=== PATIENT | male | born 1940 | race Two or more races ===

== ENCOUNTER 2023-01-29 05:08 | Inpatient (IN) | payer MEDICARE, OTHER ==
[~2023-01-29] VITALS: Ht 170.2 cm; Wt 72.6 kg
[2023-01-29] MEDS ORDERED: ACETAMINOPHEN 325 MG TABLET PO ONE (05:30)
[2023-01-29] MEDS ORDERED: CEFTRIAXONE 1GM BAG (ER ONLY) 50 ML IV ONE ×2 (05:30→05:46)
[2023-01-29] MEDS ORDERED: IV NS 0.9% 1,000 ML BAG IV ONE (05:30)
[2023-01-29] MEDS ORDERED: AZITHROMYCIN 500 MG in IV D5W 250 ML IV ONE (05:30)
[2023-01-29] MEDS ORDERED: ACETAMINOPHEN 325 MG TABLET ONE (05:46)
[2023-01-29 05:59] LABS: BASOPHILS # (AUTO) 0.1 K/uL (0.0-0.2); BASOPHILS % (AUTO) 0.4 % (0.0-2.0); HEMATOCRIT 40 % (39-51); HEMOGLOBIN 13.5 g/dL (13.5-17.5); LYMPHOCYTES # (AUTO) 1.4 K/uL (0.8-4.8); LYMPHOCYTES % (AUTO) 11.5 % (20.0-44.0); MEAN CORPUSCULAR HEMOGLOBIN 30 PG (26.0-33.0); MEAN CORPUSCULAR HGB CONC 34 g/dl (31.0-36.0); MEAN CORPUSCULAR VOLUME 89 fL (80-96); MONOCYTES # (AUTO) 0.9 K/uL (0.1-1.30); MONOCYTES % (AUTO) 7.7 % (2.0-12.0); NEUTROPHILS # (AUTO) 9.9 K/uL (1.8-8.9); NEUTROPHILS % (AUTO) 80.4 % (43.0-81.0); PLATELET COUNT (AUTO) 253 K/uL (150-450); RED BLOOD CELL COUNT(AUTO) 4.51 MIL/uL (4.5-6.0); RED CELL DISTRIBUTION WIDTH 13.5 % (11.5-15.0); WHITE BLOOD COUNT (AUTO) 12.3 K/uL (4.3-11.0)
[2023-01-29 06:05] LABS: INR 1.12 (0.91-1.10); PARTIAL THROMBOPLASTIN TIME 25.6 SEC (24.3-34.3); PROTHROMBIN TIME 11.8 SECS (9.2-11.1)
[2023-01-29 06:15] LABS: ALANINE AMINOTRANSFERASE 36 U/L (12-78); ALKALINE PHOSPHATASE 97 U/L (46-116); ASPARTATE AMINOTRANSFERASE 28 U/L (15-37); BILIRUBIN,DIRECT 0.3 mg/dL (0.0-0.2); BILIRUBIN,TOTAL 1.2 mg/dL (0.2-1.0); CALCIUM, SERUM 9.3 mg/dL (8.5-10.1); CARBON DIOXIDE 25 mmol/L (21-32); CHLORIDE 94 mmol/L (98-107); CREATININE 1.2 mg/dL (0.6-1.3); GLUCOSE 190 mg/dL (74-106); POTASSIUM 3.9 mmol/L (3.5-5.1); SODIUM SERUM 132 mmol/L (136-145); UREA NITROGEN, BLOOD 23 mg/dL (7-18)
[2023-01-29] MEDS ORDERED: AZITHROMYCIN 500 MG VIAL ONE (06:28)
[2023-01-29 07:06] LABS: APPEARANCE,URINE CLEAR (CLEAR); BILIRUBIN,URINE NEGATIVE (NEGATIVE); BLOOD, URINE TRACE-INTA Ery/uL (NEGATIVE); COLOR,URINE YELLOW (YELLOW); KETONES,URINE 1+ mg/dL (NEGATIVE); LEUKOCYTE ESTERASE ,URINE NEGATIVE (NEGATIVE); NITRITE, URINE NEGATIVE (NEGATIVE); PROTEIN,URINE 1+ mg/dl (NEGATIVE); UGLUCOSE 1+ mg/dL (NEGATIVE); UROBILINOGEN,URINE 0.2 EU/dL (0.2)
[2023-01-29 07:37] LABS: LACTIC ACID 2.2 mmol/L (0.4-2.0)
[2023-01-29] MEDS ORDERED: MAG HYDROX/AL HYDROX/SIMETH 30 ML UDC PO PRN (08:00)
[2023-01-29] MEDS ORDERED: IV D5/0.45 NACL 1,000 ML IV PRN (08:00)
[2023-01-29] MEDS ORDERED: Z GUARD REMEDY 4 OZ OINT TP PRN (08:00)
[2023-01-29] MEDS ORDERED: ENOXAPARIN SODIUM 40 MG/0.4 ML DISP.SYRIN SQ SCH (08:00)
[2023-01-29] MEDS ORDERED: ONDANSETRON HCL/PF 4 MG/2 ML VIAL IVP PRN (08:00)
[2023-01-29] MEDS ORDERED: MAGNESIUM HYDROXIDE 30 ML UDC PO PRN (08:00)
[2023-01-29 09:53] LABS: ADD URINE CULTURE NO; BACTERIA,URINE None seen /HPF (None Seen); RBC,URINE 0-2 /HPF (0-2); SQUAMOUS EPITHELIAL CELL,UR Rare /HPF (None Seen); WBC,URINE 0-2 /HPF (0-3)
[2023-01-29] MEDS: ENOXAPARIN SODIUM 40 MG/0.4 ML DISP.SYRIN SQ SCH (10:17)
[2023-01-29] MEDS ORDERED: METF-442 PO (10:50)
[2023-01-29] MEDS ORDERED: ASPI-1420 PO (10:50)
[2023-01-29] MEDS ORDERED: PIOG15TA8 PO (10:50)
[2023-01-29] MEDS ORDERED: ERGO500040 PO (10:50)
[2023-01-29] MEDS ORDERED: DEXL60CA3 PO (10:50)
[2023-01-29] MEDS ORDERED: DAPA10TA PO (10:50)
[2023-01-29] MEDS ORDERED: ICOS1CAP PO (10:50)
[2023-01-29] MEDS ORDERED: EZET10TA32 PO (10:50)
[2023-01-29] MEDS ORDERED: MAGN400T52 PO (10:50)
[2023-01-29] MEDS ORDERED: SEMA14TA PO (10:50)
[2023-01-29] MEDS ORDERED: OLME40TA18 PO (10:50)
[2023-01-29] MEDS ORDERED: KERENDIA PO (10:50)
[2023-01-29] MEDS ORDERED: METO25TA20 PO (10:50)
[2023-01-29] MEDS: ACETAMINOPHEN 325 MG TABLET PO PRN ×3 (11:00→21:40)
[2023-01-29 12:00] VITALS: BP 139/70; TEMP 99; O2SAT 96
[2023-01-29 16:00] VITALS: BP 102/60; TEMP 98; O2SAT 96
[2023-01-29 20:20] VITALS: BP 116/85; TEMP 100.4; O2SAT 96
[2023-01-30] VITALS (10 sets, daily range): BP systolic 124–154; BP diastolic 62–74; TEMP 98.9–100.9; O2SAT 94–100
[2023-01-30] MEDS: AZITHROMYCIN 500 MG in IV D5W 250 ML IV SCH (04:46)
[2023-01-30] MEDS: CEFTRIAXONE 1 G in IV D5W 50 ML IV SCH (05:49)
[2023-01-30 06:48] LABS: BASOPHILS # (AUTO) 0.1 K/uL (0.0-0.2); BASOPHILS % (AUTO) 0.4 % (0.0-2.0); HEMATOCRIT 36 % (39-51); LYMPHOCYTES % (AUTO) 12.7 % (20.0-44.0); MEAN CORPUSCULAR HEMOGLOBIN 30 PG (26.0-33.0); MEAN CORPUSCULAR HGB CONC 33 g/dl (31.0-36.0); MEAN CORPUSCULAR VOLUME 90 fL (80-96); MONOCYTES # (AUTO) 1.6 K/uL (0.1-1.30); MONOCYTES % (AUTO) 10.3 % (2.0-12.0); NEUTROPHILS % (AUTO) 76.6 % (43.0-81.0); PLATELET COUNT (AUTO) 212 K/uL (150-450); RED CELL DISTRIBUTION WIDTH 13.6 % (11.5-15.0); WHITE BLOOD COUNT (AUTO) 15.7 K/uL (4.3-11.0)
[2023-01-30 07:11] LABS: ALBUMIN 3.3 g/dL (3.4-5.0); BILIRUBIN,TOTAL 1.1 mg/dL (0.2-1.0); CALCIUM, SERUM 8.5 mg/dL (8.5-10.1); CREATININE 1.2 mg/dL (0.6-1.3); MAGNESIUM 2.1 mg/dL (1.8-2.4); PHOSPHORUS 2.3 mg/dL (2.5-4.9); POTASSIUM 3.5 mmol/L (3.5-5.1); TOTAL PROTEIN, SERUM 6.8 g/dL (6.4-8.2)
[2023-01-30] MEDS: ENOXAPARIN SODIUM 40 MG/0.4 ML DISP.SYRIN SQ SCH (08:11)
[2023-01-30] MEDS ORDERED: DEXTROSE 50%-WATER 50 ML DISP.SYRIN IV PRN ×3 (10:30→18:00)
[2023-01-30] MEDS ORDERED: INSULIN REGULAR, HUMAN 100 UNIT/ML 3 ML VIAL SQ PRN (11:00)
[2023-01-30] MEDS: ALBUTEROL HALF STRENGTH 1.25 MG/3 ML VIAL.NEB NEB SCH ×3 (11:06→20:07)
[2023-01-30] MEDS: IPRATROPIUM NEB FS 0.5 MG/2.5 ML AMPUL.NEB NEB SCH ×3 (11:06→20:07)
[2023-01-30] MEDS: IV NS 0.9% 1,000 ML IV PRN (11:15)
[2023-01-30] MEDS: ACETAMINOPHEN 325 MG TABLET PO PRN (11:25)
[2023-01-30] MEDS ORDERED: BLOOD SUGAR DIAGNOSTIC 1 EACH STRIP IN SCH (12:00)
[2023-01-30] MEDS ORDERED: BLOOD SUGAR DIAGNOSTIC 1 EACH STRIP VI SCH (12:00)
[2023-01-30] MEDS ORDERED: ACETAMINOPHEN 325 MG TABLET PO ONE (15:30)
[2023-01-30] MEDS ORDERED: K PHOS NEUTRAL 250 MG TABLET PO ONE (16:00)
[2023-01-30] MEDS: METOPROLOL TARTRATE 25 MG TABLET PO SCH (16:19)
[2023-01-30] MEDS: ENSURE ENLIVE CHOC 237 ML CAN PO SCH (17:00)
[2023-01-30] MEDS ORDERED: Medication Not On Formulary EA (Icosapent Ethyl (Vascepa) 2 GM) PO SCH (17:00)
[2023-01-30] MEDS: BLOOD SUGAR DIAGNOSTIC 1 EACH STRIP IN SCH ×2 (17:52→22:18)
[2023-01-30] MEDS: *INSULIN REGULAR(HUMULIN R)HUM 100 UNIT/ML VIAL SQ PRN (22:19)
[2023-01-31] VITALS (11 sets, daily range): BP systolic 118–146; BP diastolic 58–75; TEMP 97.3–98.8; O2SAT 95–99
[2023-01-31] MEDS: IPRATROPIUM NEB FS 0.5 MG/2.5 ML AMPUL.NEB NEB SCH ×5 (02:00→23:56)
[2023-01-31] MEDS: ALBUTEROL HALF STRENGTH 1.25 MG/3 ML VIAL.NEB NEB SCH ×5 (02:00→23:56)
[2023-01-31] MEDS: AZITHROMYCIN 500 MG in IV D5W 250 ML IV SCH (04:27)
[2023-01-31] MEDS: CEFTRIAXONE 1 G in IV D5W 50 ML IV SCH (06:17)
[2023-01-31 07:17] LABS: BASOPHILS % (AUTO) 0.2 % (0.0-2.0); EOSINOPHILS % (AUTO) 0.1 % (0.0-6.0); HEMATOCRIT 36 % (39-51); HEMOGLOBIN 12.2 g/dL (13.5-17.5); LYMPHOCYTES # (AUTO) 1.2 K/uL (0.8-4.8); LYMPHOCYTES % (AUTO) 12.3 % (20.0-44.0); MEAN CORPUSCULAR HEMOGLOBIN 31 PG (26.0-33.0); MEAN CORPUSCULAR HGB CONC 34 g/dl (31.0-36.0); MEAN CORPUSCULAR VOLUME 90 fL (80-96); MONOCYTES # (AUTO) 1.2 K/uL (0.1-1.30); MONOCYTES % (AUTO) 12.2 % (2.0-12.0); NEUTROPHILS # (AUTO) 7.5 K/uL (1.8-8.9); NEUTROPHILS % (AUTO) 75.2 % (43.0-81.0); PLATELET COUNT (AUTO) 216 K/uL (150-450); RED BLOOD CELL COUNT(AUTO) 3.97 MIL/uL (4.5-6.0); RED CELL DISTRIBUTION WIDTH 13.2 % (11.5-15.0)
[2023-01-31] MEDS: BLOOD SUGAR DIAGNOSTIC 1 EACH STRIP IN SCH ×4 (07:37→22:32)
[2023-01-31 07:41] LABS: ALANINE AMINOTRANSFERASE 95 U/L (12-78); ALBUMIN 3.2 g/dL (3.4-5.0); ALKALINE PHOSPHATASE 73 U/L (46-116); ASPARTATE AMINOTRANSFERASE 98 U/L (15-37); BILIRUBIN,TOTAL 1.1 mg/dL (0.2-1.0); CALCIUM, SERUM 8.3 mg/dL (8.5-10.1); CARBON DIOXIDE 25 mmol/L (21-32); CHLORIDE 96 mmol/L (98-107); CREATININE 1.1 mg/dL (0.6-1.3); GLUCOSE 161 mg/dL (74-106); MAGNESIUM 2.2 mg/dL (1.8-2.4); PHOSPHORUS 2.2 mg/dL (2.5-4.9); POTASSIUM 3.1 mmol/L (3.5-5.1); SODIUM SERUM 132 mmol/L (136-145); TOTAL PROTEIN, SERUM 6.7 g/dL (6.4-8.2); UREA NITROGEN, BLOOD 20 mg/dL (7-18)
[2023-01-31 07:51] LABS: CREATINE KINASE, TOTAL 1492 U/L (39-308)
[2023-01-31] MEDS: ENSURE ENLIVE CHOC 237 ML CAN PO SCH ×2 (08:09→16:47)
[2023-01-31] MEDS: LOSARTAN POTASSIUM 50 MG TABLET PO SCH (09:19)
[2023-01-31] MEDS: METOPROLOL TARTRATE 25 MG TABLET PO SCH ×2 (09:19→16:47)
[2023-01-31] MEDS: ASPIRIN EC 81 MG TABLET.DR PO SCH (09:19)
[2023-01-31] MEDS: ENOXAPARIN SODIUM 40 MG/0.4 ML DISP.SYRIN SQ SCH (09:21)
[2023-01-31] MEDS: ACETAMINOPHEN 325 MG TABLET PO PRN (10:26)
[2023-01-31] MEDS: IV NS 0.9% 1,000 ML IV PRN (10:36)
[2023-01-31] MEDS ORDERED: LORAZEPAM 1 MG TABLET PO PRN (11:30)
[2023-01-31] MEDS ORDERED: POTASSIUM CHLORIDE 20 MEQ POWDER PACKET PO ONE (12:00)
[2023-01-31] MEDS ORDERED: ROSU20TA32 PO (15:46)
[2023-01-31] MEDS ORDERED: TAMS-12 PO (15:46)
[2023-01-31] MEDS ORDERED: NEUTRA PHOS 1 POWD.PACKET PO ONE (17:00)
[2023-01-31] MEDS: ATORVASTATIN 40 MG TABLET PO SCH (22:30)
[2023-01-31] MEDS: TAMSULOSIN 0.4 MG CAP.SR.24H PO SCH (22:30)
[2023-02-01] VITALS (19 sets, daily range): BP systolic 105–152; BP diastolic 61–82; TEMP 97.3–98.6; O2SAT 94–100
[2023-02-01] MEDS: *INSULIN REGULAR(HUMULIN R)HUM 100 UNIT/ML VIAL SQ PRN ×2 (01:04→22:57)
[2023-02-01] MEDS: IPRATROPIUM NEB FS 0.5 MG/2.5 ML AMPUL.NEB NEB SCH ×6 (03:24→23:43)
[2023-02-01] MEDS: ALBUTEROL HALF STRENGTH 1.25 MG/3 ML VIAL.NEB NEB SCH ×6 (03:24→23:43)
[2023-02-01] MEDS: AZITHROMYCIN 500 MG in IV D5W 250 ML IV SCH (05:43)
[2023-02-01 06:07] LABS: CREATININE KINASE (CK),MB 6.6 ng/mL (0.0-10.4); PTH, INTACT 24 pg/mL (15-65)
[2023-02-01] MEDS: CEFTRIAXONE 1 G in IV D5W 50 ML IV SCH (06:54)
[2023-02-01] MEDS: INSULIN REGULAR, HUMAN 100 UNIT/ML 3 ML VIAL SQ PRN ×3 (07:53→16:32)
[2023-02-01] MEDS: BLOOD SUGAR DIAGNOSTIC 1 EACH STRIP IN SCH ×4 (07:53→22:56)
[2023-02-01] MEDS: ENSURE ENLIVE CHOC 237 ML CAN PO SCH ×2 (08:00→16:28)
[2023-02-01 08:53] LABS: ALANINE AMINOTRANSFERASE 91 U/L (12-78); ALKALINE PHOSPHATASE 74 U/L (46-116); ASPARTATE AMINOTRANSFERASE 69 U/L (15-37); BILIRUBIN,TOTAL 0.8 mg/dL (0.2-1.0); CALCIUM, SERUM 8.5 mg/dL (8.5-10.1); CARBON DIOXIDE 24 mmol/L (21-32); CHLORIDE 100 mmol/L (98-107); CREATINE KINASE, TOTAL 1115 U/L (39-308); CREATININE 1.1 mg/dL (0.6-1.3); GLUCOSE 148 mg/dL (74-106); POTASSIUM 3.2 mmol/L (3.5-5.1); SODIUM SERUM 134 mmol/L (136-145); TOTAL PROTEIN, SERUM 6.3 g/dL (6.4-8.2); UREA NITROGEN, BLOOD 20 mg/dL (7-18)
[2023-02-01] MEDS: ACETAMINOPHEN 325 MG TABLET PO PRN (09:04)
[2023-02-01] MEDS: ASPIRIN EC 81 MG TABLET.DR PO SCH (09:04)
[2023-02-01] MEDS: LOSARTAN POTASSIUM 50 MG TABLET PO SCH (09:05)
[2023-02-01] MEDS: METOPROLOL TARTRATE 25 MG TABLET PO SCH ×2 (09:05→16:28)
[2023-02-01] MEDS: ENOXAPARIN SODIUM 40 MG/0.4 ML DISP.SYRIN SQ SCH (09:06)
[2023-02-01] MEDS: IV NS 0.9% 1,000 ML IV PRN (11:35)
[2023-02-01] MEDS ORDERED: POTASSIUM CHLORIDE 20 MEQ TAB.PRT.SR PO ONE (14:30)
[2023-02-01] MEDS: TAMSULOSIN 0.4 MG CAP.SR.24H PO SCH (22:49)
[2023-02-01] MEDS: ATORVASTATIN 40 MG TABLET PO SCH (22:49)
[2023-02-02] VITALS (11 sets, daily range): BP systolic 134–145; BP diastolic 62–76; TEMP 97.9–98.4; O2SAT 95–100
[2023-02-02] MEDS: IPRATROPIUM NEB FS 0.5 MG/2.5 ML AMPUL.NEB NEB SCH ×5 (04:07→19:30)
[2023-02-02] MEDS: ALBUTEROL HALF STRENGTH 1.25 MG/3 ML VIAL.NEB NEB SCH ×5 (04:07→19:30)
[2023-02-02] MEDS: AZITHROMYCIN 500 MG in IV D5W 250 ML IV SCH (04:38)
[2023-02-02] MEDS: CEFTRIAXONE 1 G in IV D5W 50 ML IV SCH (06:16)
[2023-02-02 07:14] LABS: BILIRUBIN,TOTAL 0.5 mg/dL (0.2-1.0); CALCIUM, SERUM 8.6 mg/dL (8.5-10.1); CREATININE 0.9 mg/dL (0.6-1.3); POTASSIUM 3.5 mmol/L (3.5-5.1); TOTAL PROTEIN, SERUM 6.4 g/dL (6.4-8.2)
[2023-02-02] MEDS: BLOOD SUGAR DIAGNOSTIC 1 EACH STRIP IN SCH ×3 (07:42→16:40)
[2023-02-02] MEDS: ASPIRIN EC 81 MG TABLET.DR PO SCH (08:45)
[2023-02-02] MEDS: LOSARTAN POTASSIUM 50 MG TABLET PO SCH (08:49)
[2023-02-02] MEDS: METOPROLOL TARTRATE 25 MG TABLET PO SCH ×2 (08:49→16:39)
[2023-02-02] MEDS: ENOXAPARIN SODIUM 40 MG/0.4 ML DISP.SYRIN SQ SCH (08:50)
[2023-02-02] MEDS: ENSURE ENLIVE CHOC 237 ML CAN PO SCH ×2 (09:05→16:40)
[2023-02-02] MEDS ORDERED: SULF1TAB48 PO (09:15)
[2023-02-02] MEDS ORDERED: CEPH500C2 PO (09:15)
== END 2023-02-03 | DRG 871 ==
LOC: ER 05:10 → MEDSG1 08:42
PROVIDERS: ADMIT Internal Medicine; ATTEND Internal Medicine
DX: A41.9 Sepsis, unspecified organism (principal); J12.9 Viral pneumonia, unspecified; J15.9 Unspecified bacterial pneumonia; E87.1 Hypo-osmolality and hyponatremia; G93.40 Encephalopathy, unspecified; E44.0 Moderate protein-calorie malnutrition; R18.8 Other ascites; E87.20 Acidosis, unspecified; I25.10 Atherosclerotic heart disease of native coronary artery without angina pectoris; Z20.822 Contact with and (suspected) exposure to COVID-19; E11.9 Type 2 diabetes mellitus without complications; I10 Essential (primary) hypertension; Z79.84 Long term (current) use of oral hypoglycemic drugs; Z79.899 Other long term (current) drug therapy; Z79.82 Long term (current) use of aspirin; E86.0 Dehydration; R65.20 Severe sepsis without septic shock; E86.9 Volume depletion, unspecified; T44.5X5A Adverse effect of predominantly beta-adrenoreceptor agonists, initial encounter; Y92.009 Unspecified place in unspecified non-institutional (private) residence as the place of occurrence of the external cause; E86.1 Hypovolemia; E88.09 Other disorders of plasma-protein metabolism, not elsewhere classified; R25.1 Tremor, unspecified; R74.8 Abnormal levels of other serum enzymes
CPT/HCPCS: 36415; 71045-TC; 80048-TC; 80053-TC; 80076-TC; 81001; 82550-TC; 82553; 82962-TC; 83605-TC; 83735-TC; 83970; 84100-TC; 84155; 84165; 84484-TC; 85025-TC; 85730-TC; 87040-TC; 92526; 92611-TC; 94799-TC; 97112-TC; 97116-TC; 97530-TC; 97535-TC; A4223; C9803; G0378; J0456; J0696; J1650; J1815; J3490; J7030; J7060